=== PATIENT | male | born 1990 | race African-American/Black ===

== ENCOUNTER 2016-04-28 17:14 | Emergency (ER) | payer SELFPAY | END 2016-04-28 23:49 | disposition left against medical advice (07) | LOC: ER 17:14 | DX: Z53.21 Procedure and treatment not carried out due to patient leaving prior to being seen by health care provider (principal) | CPT/HCPCS: 36415; 80053; 83690; 85025 ==

== ENCOUNTER 2016-04-30 18:00 | Emergency (ER) | payer SELFPAY ==
[2016-04-30] MEDS ORDERED: OPTIRAY 350 100 ML VIAL HMH IV ONE (18:01)
== END 2016-04-30 22:12 | disposition home or self-care (01) ==
LOC: ER 18:00
CPT/HCPCS: 36415; 74177; 80053; 81003; 83690; 85025